=== PATIENT | female | born 1955 | race Caucasian/White ===

== ENCOUNTER 2017-07-09 05:34 | Outpatient (CLI) | payer BC ==
[~2017-07-09] VITALS: Ht 170.2 cm; Wt 68.0 kg
[~2017-07-09 05:34] MED LIST: AMOX-358 PO; CALCIUM +D; CIPR500T4 PO; HYDR-34 PO; LACT1CAP62 PO; LEVO500T80 PO; METR500T PO; METR500T21 PO; NFCHLORHGL PO; OMEP20TA2 PO; PHEN16.223 PO; POTA99TA7 PO; TRAM-42 PO; WHEA236P PO
[2017-07-09] MEDS ORDERED: PARO-49 PO (10:50)
[2017-07-09] MEDS ORDERED: LACT1CAP28 PO (10:50)
== END 2017-07-09 11:00 ==
LOC: PREOP 05:34
PROVIDERS: ATTEND Surgery
DX: Z01.818 Encounter for other preprocedural examination (principal)

== ENCOUNTER → 2021-03-20 | Outpatient (CLI) | payer BC, MEDICARE ==
[~2021-03-20] MED LIST changes: +CATHETER FLUSH 10 ML SYR IV PRN; +HOLD METFORMIN - RECEIVED CONTRAST 20 ML VIAL IV SCH; +IOHEXOL 350 MG/ML 100 ML (OMNIPAQUE 350) VIAL IV ONE; +LACT1CAP28 PO; -LEVO500T80 PO; +LEVO500T81 PO; +METR-145 PO; -METR500T21 PO; +NS 100 ML (IVPB) BAG IV ONE; +PARO-49 PO
--- NOTE | 2021-03-20 12:10 | Diagnostic Imaging Report ---
PROCEDURE: CT abdomen and pelvis with contrast. TECHNIQUE: Multiple contiguous axial images were obtained through the abdomen and pelvis after administration of intravenous contrast. Auto Exposure Controls were utilized during the CT exam to meet ALARA standards for radiation dose reduction. All CT scans use one or more of the following dose optimizing techniques: automated exposure control, MA and/or KvP adjustment based on patient size and exam type or iterative reconstruction. INDICATION: Epigastric pain. Patient is COVID positive. Patient does have long-standing abdominal pain as well as unintentional weight loss. COMPARISON: Comparison is made with prior CT from 10/19/2014. FINDINGS: Lung bases are clear. Liver demonstrates generalized low density consistent with hepatic steatosis. No discrete liver mass is detected. The gallbladder is unremarkable. No biliary ductal dilatation is seen. Pancreas and spleen are unremarkable. No adrenal mass is detected. Kidneys are unremarkable. Aorta is nonaneurysmal. No central retroperitoneal or mesenteric lymphadenopathy is detected. Bowel loops appear to be normal in caliber. There is no obstruction. Diverticulosis of the sigmoid is again noted but no evidence of acute diverticulitis. Appendix is visualized and unremarkable. No free fluid is identified. There is no fluid collection. No definite pelvic lymphadenopathy is seen. The bladder and uterus are unremarkable. Bony structures are nonacute. IMPRESSION: 1. Hepatic steatosis. 2. Uncomplicated diverticulosis. 3. No acute feature is detected. Dictated by: Dictated on workstation # [id number]
== END ==
LOC: RAD 10:56
PROVIDERS: ATTEND Pediatrics
DX: K76.0 Fatty (change of) liver, not elsewhere classified (principal); K57.30 Diverticulosis of large intestine without perforation or abscess without bleeding
CPT/HCPCS: 74177